=== PATIENT | male | born 1985 | race Caucasian/White ===

== ENCOUNTER 2018-10-11 18:59 | Emergency (ER) | payer OTHER ==
[~2018-10-11] VITALS: Ht 180.3 cm; Wt 75.0 kg
[2018-10-11 19:03] VITALS: BP 114/79; TEMP 97.8
[2018-10-11] MEDS ORDERED: CELEXA40 MG PO (19:09)
[2018-10-11 20:19] VITALS: PULSE 64
== END 2018-10-11 20:25 | disposition home or self-care (01) ==
LOC: COL.ER 18:59
DX: S61.011A Laceration without foreign body of right thumb without damage to nail, initial encounter (principal); W26.8XXA Contact with other sharp object(s), not elsewhere classified, initial encounter; Y92.000 Kitchen of unspecified non-institutional (private) residence as the place of occurrence of the external cause; Y93.G3 Activity, cooking and baking